=== PATIENT | male | born 1960 | race Caucasian/White ===

== ENCOUNTER 2021-07-28 10:21 | Outpatient (REF) | payer OTHER, SELFPAY ==
[2021-07-28 13:03] LABS: Estimated Glomerular Filt Rate > 60; Uric Acid 4.3 mg/dL (3.4-7.0)
== END 2021-07-28 10:22 | disposition home or self-care (01) ==
LOC: HO.LAB 10:21
PROVIDERS: PCP Internal Medicine; Visit Provider Internal Medicine Rheumatology
DX: M10.9 Gout, unspecified (principal); M17.0 Bilateral primary osteoarthritis of knee
CPT/HCPCS: 36415; 82565; 84550

== ENCOUNTER 2021-10-27 09:13 | Outpatient (REF) | payer OTHER, SELFPAY ==
[2021-10-27 11:04] LABS: Estimated Glomerular Filt Rate > 60; Uric Acid 4.7 mg/dL (3.4-7.0)
== END 2021-10-27 09:14 | disposition home or self-care (01) ==
LOC: HO.10HDL 09:13
PROVIDERS: Visit Provider Internal Medicine Rheumatology
DX: M10.9 Gout, unspecified (principal)
CPT/HCPCS: 36415; 82565; 84550

== ENCOUNTER → 2022-04-19 08:40 | Outpatient (BNVA) | payer OTHER, SELFPAY | PROVIDERS: PCP Internal Medicine; Visit Provider Internal Medicine Rheumatology | DX: Z13.89 Encounter for screening for other disorder (principal) ==

== ENCOUNTER 2022-04-19 10:03 | Outpatient (REF) | payer OTHER, SELFPAY ==
[2022-04-19 12:06] LABS: Estimated Glomerular Filt Rate > 60; Uric Acid 5.7 mg/dL (3.4-7.0)
== END 2022-04-19 10:04 | disposition home or self-care (01) ==
LOC: HO.10HDL 10:03
PROVIDERS: Visit Provider Internal Medicine Rheumatology
DX: M10.9 Gout, unspecified (principal)
CPT/HCPCS: 36415; 82565; 84550

== ENCOUNTER → 2023-04-19 08:09 | Outpatient (BNVA) | payer BC, SELFPAY | PROVIDERS: Visit Provider Nurse Practitioner Family ==